=== PATIENT | female | born 1975 | race Caucasian/White ===

== ENCOUNTER 2018-04-04 13:01 | Emergency (ER) | payer OTHER ==
[2018-04-04 13:30] VITALS: BMI 23.2
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
[2018-04-04 14:30] LABS: BASO % 0.7 % (0-2.0); EOS % 2.3 % (0-4.5); HEMATOCRIT 39.5 % (32.4-45.2); HEMOGLOBIN 12.8 GM/dL (10.7-15.3); LYMPH % 40.1 % (8-40); MCH 29.6 pg (25.7-33.7); MCHC 32.4 g/dl (32.0-36.0); MEAN CELL VOLUME 91.3 fl (80-96); MEAN PLT VOLUME 8.4 fl (7.5-11.1); MONO % 5.5 % (3.8-10.2); NEUT % 51.4 % (42.8-82.8); PLATELET COUNT 261 K/MM3 (134-434); RBC 4.33 M/mm3 (3.60-5.2); RDW 12.9 % (11.6-15.6); WHITE BLOOD COUNT 8.6 K/mm3 (4.0-10.0)
[2018-04-04 14:31] LABS: URINE APPEARANCE CLEAR; URINE BILIRUBIN NEGATIVE (<2.0 mg/dL); URINE COLOR STRAW; URINE GLUCOSE (UA) NEGATIVE (NEGATIVE); URINE KETONE NEGATIVE (NEGATIVE); URINE LEUK ESTERASE NEGATIVE (NEGATIVE); URINE NITRITE NEGATIVE (NEGATIVE); URINE PROTEIN NEGATIVE (NEGATIVE); URINE UROBILINOGEN NEGATIVE mg/dL (0.2-1.0)
[2018-04-04 15:01] LABS: ALK PHOS 68 U/L (45-117); ANION GAP 7 MMOL/L (8-16); BILIRUBIN,TOTAL 0.5 mg/dL (0.2-1); BLOOD UREA NITROGEN 10 mg/dL (7-18); CALCIUM 8.3 mg/dL (8.5-10.1); CHLORIDE 106 mmol/L (98-107); CO2 23 mmol/L (21-32); CREATININE 0.5 mg/dL (0.55-1.3); GLUCOSE,RANDOM 100 mg/dL (74-106); SGOT/AST 12 U/L (15-37); SGPT/ALT 20 U/L (13-61); SODIUM 137 mmol/L (136-145); TOT PROT 7.7 g/dl (6.4-8.2)
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
[2018-04-04] MEDS ORDERED: ACETAMINOPHEN 500 MG TABLET (FP) PO ONE (15:15)
[2018-04-04] MEDS ORDERED: ACETAMINOPHEN 1000 MG/100 ML VIAL (NON FORMULARY) IVPB ONE (16:00)
[2018-04-04] MEDS ORDERED: METOCLOPRAMIDE HCL INJECTION 10 MG/2 ML VIAL IVPB ONE (16:00)
[2018-04-04] MEDS ORDERED: ACETAMINOPHEN INJECTION 100 ML IVPB ONE (16:02)
[2018-04-04] MEDS ORDERED: METOCLOPRAMIDE HCL INJECTION 10 MG/2 ML VIAL ONE (16:02)
[2018-04-04] MEDS ORDERED: SODIUM CHLORIDE 1,000 ML IV STA (16:02)
[2018-04-04 17:33] VITALS: BP 127/61; PULSE 85; TEMP 98.1
--- NOTE | 2018-04-05 11:47 | EKG ---
Test Reason : Blood Pressure : / mmHG Vent. Rate : 080 BPM Atrial Rate : 080 BPM P-R Int : 150 ms QRS Dur : 076 ms QT Int : 382 ms P-R-T Axes : 065 057 045 degrees QTc Int : 440 ms POOR DATA QUALITY, INTERPRETATION MAY BE ADVERSELY AFFECTED NORMAL SINUS RHYTHM NORMAL ECG NO PREVIOUS ECGS AVAILABLE Confirmed by LUCIEN OLSON MD ([id number]) on 04/05/2018 11:47:04 AM Referred By: Confirmed By:LUCIEN OLSON MD
== END 2018-04-04 17:33 | disposition home or self-care (01) ==
LOC: JER 13:01
PROC: 3E0337Z Introduction of Electrolytic and Water Balance Substance into Peripheral Vein, Percutaneous Approach (ICD-10-PCS; principal; 2018-04-04)
PROC: 3E033GC Introduction of Other Therapeutic Substance into Peripheral Vein, Percutaneous Approach (ICD-10-PCS; 2018-04-04)
PROC: 3E033NZ Introduction of Analgesics, Hypnotics, Sedatives into Peripheral Vein, Percutaneous Approach (ICD-10-PCS; 2018-04-04)
DX: S06.0X0A Concussion without loss of consciousness, initial encounter (principal); W01.198A Fall on same level from slipping, tripping and stumbling with subsequent striking against other object, initial encounter; Y93.89 Activity, other specified; Y92.018 Other place in single-family (private) house as the place of occurrence of the external cause; Y99.8 Other external cause status
CPT/HCPCS: 36415; 70450-TC; 72125-TC; 80053; 81003; 82550; 84443; 84484; 84703; 85025; 87086; 93005; 93010; 96361; 96374; 96375; 99282-25; J0131; J7030

== ENCOUNTER 2019-07-29 20:23 | Emergency (ER) | payer OTHER ==
[2019-07-29 20:44] VITALS: BP 136/74; PULSE 97; TEMP 98.6
--- NOTE | 2019-07-29 20:48 | PDOC ---
Rapid Medical Evaluation Chief Complaint: Cold Symptoms Time Seen by Provider: 07/29/19 20:35 Medical Evaluation: Allergies Allergy/AdvReac Type Severity Reaction Status Date / Time No Known Allergies Allergy Verified 12/27/17 11:12 I have performed a brief in-person evaluation of this patient. The patient presents with a chief complaint of: Patient with no sig Pmhx present 1 week h/o nasal congestion, sinus pains, dry cough and intermittent CARLIN. Patient feels she has sinus congestion. Denies fever, chills, sore throat, SOB. Denies any other symptoms Pertinent physical exam findings: lungs CTAB in NAD. Afebrile. normal cardio exam. A/P: 43 yo with URI and sinus congestion Patient stable for outpatient tx on Augment bid x 7 days for sinusitis. Tessalon perles for cough and atrovent nasal spray for nasal congestion with advice to increase fluid intake with PCP f/u Discharge Disposition - Diagnosis URI with cough and congestion Sinusitis, acute Qualifiers: Sinusitis location: frontal Recurrence: non-recurrent Qualified Code(s): J01.10 - Acute frontal sinusitis, unspecified - Discharge Dispostion Disposition: HOME Condition at time of disposition: Stable Decision to Admit order: No - Prescriptions Prescriptions: Amoxicillin/Potassium Clav [Augmentin 875-125 Tablet] 1 each PO BID 7 Days #14 tablet Ipratropium [place] 2 spray NS BID 5 Days #1 spray Benzonatate [Tessalon Pearls -] 100 mg PO Q8H PRN #21 capsule PRN Reason: Cough - Referrals - Patient Instructions Printed Discharge Instructions: DI for Sinusitis Additional Instructions: Take medications as prescribed. Increase fluid intake. Follow-up with primary care Print Language: EMIRATI - Post Discharge Activity
== END 2019-07-29 20:56 | disposition home or self-care (01) ==
LOC: JER 20:23
DX: J01.10 Acute frontal sinusitis, unspecified (principal); J06.9 Acute upper respiratory infection, unspecified
CPT/HCPCS: 99283-25

== ENCOUNTER 2021-04-27 10:12 | Emergency (ER) | payer OTHER ==
[2021-04-27 10:43] VITALS: BP 117/63; PULSE 83; TEMP 98.4; BMI 23.2
== END 2021-04-27 13:13 | disposition home or self-care (01) ==
LOC: JER 10:12
DX: J18.9 Pneumonia, unspecified organism (principal); J06.9 Acute upper respiratory infection, unspecified; R05.1 Acute cough; R09.81 Nasal congestion
CPT/HCPCS: 71046-TC-FY; 87651; 87804; 99284-25; C9803; U0003; U0005

== ENCOUNTER 2022-01-03 12:19 | Emergency (ER) | payer OTHER ==
[2022-01-03 12:32] VITALS: TEMP 97.5; BMI 23.8
[2022-01-03] MEDS ORDERED: FAMOTIDINE 10 MG TABLET PO ONE (13:11)
[2022-01-03] MEDS ORDERED: ACETAMINOPHEN 500 MG TABLET (FP) PO ONE (13:11)
[2022-01-03] MEDS ORDERED: MAG HYDROX/AL HYDROX/SIMETH -MYLANTA- ORAL SUSPENSION PO ONE (13:11)
[2022-01-03] MEDS ORDERED: ACETAMINOPHEN 1000 MG/100 ML BAG IVPB ONE (13:14)
[2022-01-03] MEDS ORDERED: ONDANSETRON 4 MG/2 ML VIAL IVPUSH ONE (13:14)
[2022-01-03] MEDS ORDERED: FAMOTIDINE 20 MG/50 ML IVPB 20 MG/50 ML MG IVPB ONE ×2 (13:14→13:18)
[2022-01-03] MEDS ORDERED: ACETAMINOPHEN INJECTION 100 ML IVPB ONE (13:17)
[2022-01-03] MEDS ORDERED: MAG HYDROX/AL HYDROX/SIMETH 30 ML UNIT-DOSE CUP ONE (13:18)
[2022-01-03] MEDS ORDERED: ONDANSETRON 4 MG/2 ML VIAL ONE (13:18)
[2022-01-03 13:50] LABS: BASO % 0.7 % (0-2.0); EOS % 2.8 % (0-4.5); HEMATOCRIT 39.7 % (32.4-45.2); HEMOGLOBIN 13.1 GM/dL (10.7-15.3); LYMPH % 35.7 % (8-40); MEAN PLT VOLUME 8.4 fl (7.5-11.1); MONO % 6.7 % (3.8-10.2); NEUT % 54.1 % (42.8-82.8); PLATELET COUNT 259 10^3/uL (134-434); RBC 4.36 M/mm3 (3.60-5.2); RDW 12.9 % (11.6-15.6); WHITE BLOOD COUNT 8.4 K/mm3 (4.0-10.0)
[2022-01-03 13:56] LABS: INR 1.01 (0.83-1.09); PROTHROMBIN TIME (PATIENT) 11.6 SEC (9.7-13.0)
[2022-01-03 13:59] LABS: ACTIVATED PTT 36.1 SECONDS (25.2-36.5)
[2022-01-03 14:11] LABS: BLOOD UREA NITROGEN 13.5 mg/dL (7-18)
[2022-01-03 14:15] LABS: CREATININE 0.5 mg/dL (0.55-1.3)
[2022-01-03 14:16] LABS: BILIRUBIN,TOTAL 0.4 mg/dL (0.2-1); TOT PROT 7.8 g/dl (6.4-8.2)
[2022-01-03 14:20] LABS: N-TERMINAL BNP 13.3 pg/ml (5-125)
[2022-01-03] MEDS ORDERED: IBUPROFEN 600 MG TABLET (FP) PO ONE ×2 (15:13→15:28)
[2022-01-03 16:34] VITALS: BP 119/79; PULSE 63; RESP 20
== END 2022-01-03 16:34 | disposition home or self-care (01) ==
LOC: JER 12:19
PROC: 3E0333Z Introduction of Anti-inflammatory into Peripheral Vein, Percutaneous Approach (ICD-10-PCS; principal; 2022-01-03)
PROC: 3E033GC Introduction of Other Therapeutic Substance into Peripheral Vein, Percutaneous Approach (ICD-10-PCS; 2022-01-03)
DX: R07.9 Chest pain, unspecified (principal)
CPT/HCPCS: 0241U-QW; 36415; 71046-TC-FY; 80053; 83690; 83880; 84484; 85025; 85610; 85730; 93005; 93010; 96374; 96375; 99285-25

== ENCOUNTER 2022-01-04 22:55 | Emergency (ER) | payer OTHER ==
[2022-01-04 23:23] VITALS: BP 135/78; PULSE 67; RESP 69; TEMP 98.1; BMI 24.6
[2022-01-05] MEDS ORDERED: diphenhydrAMINE HCL 50 MG CAPSULE PO ONE (00:15)
[2022-01-05] MEDS ORDERED: predniSONE 20 MG TABLET (UD) PO ONE (00:15)
[2022-01-05] MEDS ORDERED: FAMOTIDINE 20 MG TABLET PO ONE (00:16)
[2022-01-05] MEDS ORDERED: predniSONE 20 MG TABLET (UD) ONE (01:48)
[2022-01-05] MEDS ORDERED: diphenhydrAMINE HCL 25 MG CAPSULE (FP) PO ONE (01:48)
[2022-01-05] MEDS ORDERED: FAMOTIDINE 20 MG TABLET ONE (01:48)
== END 2022-01-05 01:58 | disposition home or self-care (01) ==
LOC: JERFT 22:55 → JER 22:55 → JERFT 01-05 01:58
DX: T78.40XA Allergy, unspecified, initial encounter (principal)
CPT/HCPCS: 99283-25

== ENCOUNTER 2022-09-17 19:04 | Emergency (ER) | payer OTHER ==
[2022-09-17 19:18] VITALS: BP 127/70; PULSE 77; RESP 18; TEMP 99; BMI 23.8
[2022-09-17 20:23] LABS: EOS % 1.5 % (0-4.5); HEMATOCRIT 36.1 % (32.4-45.2); HEMOGLOBIN 12.4 GM/dL (10.7-15.3); LYMPH % 38.2 % (8-40); MCH 30.7 pg (25.7-33.7); MCHC 34.3 g/dl (32.0-36.0); MEAN CELL VOLUME 89.5 fl (80-96); MEAN PLT VOLUME 9.3 fl (7.5-11.1); MONO % 6.8 % (3.8-10.2); NEUT % 52.5 % (42.8-82.8); PLATELET COUNT 218 10^3/uL (134-434); RBC 4.04 M/mm3 (3.60-5.2); WHITE BLOOD COUNT 8.1 K/mm3 (4.0-10.0)
[2022-09-17 20:31] LABS: INR 1.05 (0.83-1.09); PROTHROMBIN TIME (PATIENT) 12.2 SEC (9.7-13.0)
[2022-09-17 20:34] LABS: ACTIVATED PTT 37.4 SECONDS (25.2-36.5)
[2022-09-17 20:39] LABS: ALBUMIN 3.9 g/dl (3.4-5.0); BLOOD UREA NITROGEN 12.3 mg/dL (7-18); CALCIUM 8.8 mg/dL (8.5-10.1); MAGNESIUM 2.2 mg/dL (1.8-2.4)
[2022-09-17 20:42] LABS: CREATININE 0.6 mg/dL (0.55-1.3)
[2022-09-17 20:44] LABS: BILIRUBIN,TOTAL 0.4 mg/dL (0.2-1); TOT PROT 7.6 g/dl (6.4-8.2)
== END 2022-09-17 22:11 | disposition home or self-care (01) ==
LOC: JER 19:04
DX: R07.9 Chest pain, unspecified (principal); R51.9 Headache, unspecified; R42 Dizziness and giddiness; R09.81 Nasal congestion; J01.90 Acute sinusitis, unspecified; Z20.822 Contact with and (suspected) exposure to COVID-19
CPT/HCPCS: 0241U-QW; 36415; 71045-TC-FY; 80053; 83735; 84484; 84703; 85025; 85379; 85610; 85730; 93005; 93010; 99284-25

== ENCOUNTER 2022-12-07 08:50 | Emergency (ER) | payer OTHER ==
[2022-12-07 08:55] VITALS: RESP 18; BMI 23.2
[2022-12-07 10:19] VITALS: BP 113/68; PULSE 80; TEMP 97.6
== END 2022-12-07 10:19 | disposition home or self-care (01) ==
LOC: JER 08:50
DX: G47.00 Insomnia, unspecified (principal)
CPT/HCPCS: 99282-25